=== PATIENT | male | born 1980 | race Caucasian/White ===

== ENCOUNTER 2017-04-01 12:42 | Emergency (ER) | payer SELFPAY ==
[~2017-04-01] VITALS: Ht 167.6 cm; Wt 79.4 kg
[2017-04-01 13:06] VITALS: Ht 167.6 cm; Wt 79.4 kg
[2017-04-01 17:30] VITALS: BP 145/90
== END 2017-04-01 17:30 | disposition home or self-care (01) ==
LOC: ED 12:42
DX: F41.9 Anxiety disorder, unspecified (principal); I16.0 Hypertensive urgency; I10 Essential (primary) hypertension; F10.20 Alcohol dependence, uncomplicated; Z88.6 Allergy status to analgesic agent